=== PATIENT | female | born 1985 | race Caucasian/White ===

== ENCOUNTER 2021-07-19 12:33 | Emergency (ER) | payer BC ==
[~2021-07-19] VITALS: Ht 167.6 cm; Wt 94.3 kg
[2021-07-19] MEDS ORDERED: CELEXA 10 MG TA10 M1 PO (12:42)
[2021-07-19] MEDS ORDERED: HYDROCODON-ACE1 EAC7 PO (16:25)
[2021-07-19] MEDS ORDERED: CEPHALEXIN500 MG PO ×2 (16:29→17:07)
[2021-07-19 16:35] VITALS: BP 150/79
== END 2021-07-19 16:35 | disposition home or self-care (01) ==
LOC: M.ERS 12:33
DX: S02.2XXA Fracture of nasal bones, initial encounter for closed fracture (principal); S02.5XXA Fracture of tooth (traumatic), initial encounter for closed fracture; Z91.030 Bee allergy status; W01.0XXA Fall on same level from slipping, tripping and stumbling without subsequent striking against object, initial encounter; Y93.89 Activity, other specified; Y92.89 Other specified places as the place of occurrence of the external cause; Y99.8 Other external cause status